=== PATIENT | female | born 1935 | race Caucasian/White ===

== ENCOUNTER 2016-10-16 07:46 | Emergency (ER) | payer OTHER, BC ==
[~2016-10-16] VITALS: Ht 157.5 cm; Wt 38.6 kg
[2016-10-16 08:15] LABS: ABSOLUTE NEUTROPHILS 4.6 thou/uL (1.4-8.2); BASOPHILS 0.5 % (0.0-2.0); EOSINOPHILS 2.9 % (0.0-3.0); HEMATOCRIT 37.5 % (37.0-47.0); HEMOGLOBIN 12.6 gm/dL (12.0-15.0); LYMPHOCYTES 22.3 % (24.0-44.0); MCH 28.6 pg (26.0-34.0); MCHC 33.6 g/dL (28.0-37.0); MCV 85.3 fL (80.0-100.0); MONOCYTES 8.4 % (1.0-8.0); PLATELET COUNT 239 thou/uL (150-400); POLYS 65.9 % (36.0-66.0); RDW 14.9 % (10.5-14.5); WBC 6.9 thou/uL (4.0-11.0)
[2016-10-16 08:16] LABS: MANUAL DIFF NO
[2016-10-16 08:26] LABS: CALCIUM 9.4 mg/dL (8.5-10.1); POTASSIUM 3.9 mmol/L (3.5-5.1)
[2016-10-16 08:30] LABS: ALBUMIN 4.2 g/dL (3.4-5.0); DIRECT BILIRUBIN 0.2 mg/dL (<0.1-0.3); TOTAL PROTEIN 7.7 g/dL (6.4-8.2)
[2016-10-16] MEDS ORDERED: ATORVASTATIN CA80 MG PO (09:04)
[2016-10-16] MEDS ORDERED: NORVASC5 MG PO (09:04)
[2016-10-16] MEDS ORDERED: HYDROCHLOROTHIA25 M2 PO (09:04)
[2016-10-16] MEDS ORDERED: LISINOPRIL20 MG PO (09:04)
[2016-10-16] MEDS ORDERED: QVAR8.7 G1 IH (09:05)
[2016-10-16] MEDS ORDERED: VENTOLIN HFA 1818 GM INH (09:05)
[2016-10-16] MEDS ORDERED: XALATAN2.5 ML OPHTHALMIC (09:06)
[2016-10-16] MEDS ORDERED: MOBIC7.5 MG PO (11:08)
[2016-10-16] MEDS ORDERED: VALIUM2 MG PO (11:08)
[2016-10-16 11:33] VITALS: BP 142/59
== END 2016-10-16 11:42 | disposition home or self-care (01) ==
LOC: ER 07:46
PROVIDERS: Emergency Medicine
DX: M62.830 Muscle spasm of back (principal); Z90.89 Acquired absence of other organs; Z90.710 Acquired absence of both cervix and uterus

== ENCOUNTER 2017-08-10 18:19 | Emergency (ER) | payer OTHER, BC ==
[~2017-08-10] VITALS: Ht 157.5 cm; Wt 36.7 kg
[~2017-08-10 18:19] MED LIST: ATORVASTATIN CA80 MG PO; HYDROCHLOROTHIA25 M2 PO; LISINOPRIL20 MG PO; MOBIC7.5 MG PO; NORVASC5 MG PO; QVAR8.7 G1 IH; VALIUM2 MG PO; VENTOLIN HFA 1818 GM INH; XALATAN2.5 ML OPHTHALMIC
[2017-08-10] MEDS ORDERED: COLACE100 MG PO (19:02)
[2017-08-10] MEDS ORDERED: NORCO 5-325 TA1 EACH PO (19:02)
[2017-08-10 19:48] VITALS: BP 109/76
== END 2017-08-10 19:33 | disposition home or self-care (01) ==
LOC: ER 18:19
DX: S39.012A Strain of muscle, fascia and tendon of lower back, initial encounter (principal); S22.41XA Multiple fractures of ribs, right side, initial encounter for closed fracture; J45.909 Unspecified asthma, uncomplicated; Z90.89 Acquired absence of other organs; X50.1XXA Overexertion from prolonged static or awkward postures, initial encounter; Y93.89 Activity, other specified; Y92.89 Other specified places as the place of occurrence of the external cause; Y99.8 Other external cause status

== ENCOUNTER 2019-03-03 16:35 | Emergency (ER) | payer OTHER, BC ==
[~2019-03-03] VITALS: Ht 157.5 cm; Wt 39.0 kg
[~2019-03-03 16:35] MED LIST changes: +COLACE100 MG PO; +NORCO 5-325 TA1 EACH PO
[2019-03-03 17:11] LABS: URINE BILIRUBIN NEGATIVE (Negative); URINE BLOOD NEGATIVE (Negative); URINE CLARITY CLEAR; URINE COLOR YELLOW; URINE GLUCOSE-RANDOM* NEGATIVE (Negative); URINE KETONES NEGATIVE (Negative); URINE LEUKOCYTES-REFLEX NEGATIVE (Negative); URINE NITRITE-REFLEX NEGATIVE (Negative); URINE PROTEIN (DIPSTICK) 1+ (Negative); URINE SPECIFIC GRAVITY 1.015 (1.005-1.035); URINE UROBILINOGEN 0.2 E.U./dl (0.2-1.0)
[2019-03-03] MEDS ORDERED: TRAMADOL 50 MG50 MG PO (17:11)
[2019-03-03 17:31] LABS: BACTERIA-REFLEX 1-9 Few /HPF (None Seen); CASTS None Seen /LPF (None Seen); CRYSTALS None Seen /LPF (None Seen); SQUAMOUS 0-3 Few /LPF (0-3); URINE RBC None Seen /HPF (0-2); URINE WBC-REFLEX None Seen /HPF (0-5)
[2019-03-03] MEDS ORDERED: LIDOCAINE PAIN1 EACH TOP (18:06)
[2019-03-03 18:14] VITALS: BP 146/67
== END 2019-03-03 18:18 | disposition home or self-care (01) ==
LOC: ER 16:35
PROVIDERS: Physician Assistant
DX: S22.32XA Fracture of one rib, left side, initial encounter for closed fracture (principal); J45.909 Unspecified asthma, uncomplicated; Z90.49 Acquired absence of other specified parts of digestive tract; X58.XXXA Exposure to other specified factors, initial encounter; Y93.89 Activity, other specified; Y92.89 Other specified places as the place of occurrence of the external cause; Y99.8 Other external cause status

== ENCOUNTER 2020-02-01 11:40 | Emergency (ER) | payer OTHER, BC ==
[~2020-02-01] VITALS: Ht 157.5 cm; Wt 39.9 kg
[~2020-02-01 11:40] MED LIST changes: +LIDOCAINE PAIN1 EACH TOP; +TRAMADOL 50 MG50 MG PO
[2020-02-01] MEDS ORDERED: ASPIR 8181 MG PO (11:58)
[2020-02-01 13:13] LABS: URINE BILIRUBIN NEGATIVE (Negative); URINE BLOOD NEGATIVE (Negative); URINE CLARITY CLEAR; URINE COLOR YELLOW; URINE GLUCOSE-RANDOM* NEGATIVE (Negative); URINE KETONES NEGATIVE (Negative); URINE LEUKOCYTES-REFLEX 2+ (Negative); URINE NITRITE-REFLEX NEGATIVE (Negative); URINE PROTEIN (DIPSTICK) NEGATIVE (Negative); URINE UROBILINOGEN 0.2 E.U./dl (0.2-1.0)
[2020-02-01 13:24] LABS: CRYSTALS None Seen /LPF (None Seen); HYALINE CASTS 0-3 Few /LPF (None Seen); SQUAMOUS 4-10 Moderate /LPF (0-3); URINE RBC None Seen /HPF (0-2); URINE WBC-REFLEX 6-15 Few /HPF (0-5)
[2020-02-01] MEDS ORDERED: KEFLEX500 M1 PO (13:43)
[2020-02-01 13:53] VITALS: BP 134/54
== END 2020-02-01 13:54 | disposition home or self-care (01) ==
LOC: ER 11:40
PROVIDERS: Emergency Medicine
DX: M54.5 Low back pain (principal); N39.0 Urinary tract infection, site not specified; J45.909 Unspecified asthma, uncomplicated; Z90.89 Acquired absence of other organs; Z79.82 Long term (current) use of aspirin; Z79.899 Other long term (current) drug therapy; Z90.710 Acquired absence of both cervix and uterus

== ENCOUNTER 2020-02-14 14:10 | Emergency (ER) | payer OTHER, BC ==
[~2020-02-14] VITALS: Ht 157.5 cm; Wt 39.9 kg
[~2020-02-14 14:10] MED LIST changes: +ASPIR 8181 MG PO; +KEFLEX500 M1 PO
[2020-02-14 14:39] LABS: URINE BILIRUBIN NEGATIVE (Negative); URINE BLOOD NEGATIVE (Negative); URINE CLARITY CLEAR; URINE COLOR YELLOW; URINE GLUCOSE-RANDOM* NEGATIVE (Negative); URINE KETONES NEGATIVE (Negative); URINE LEUKOCYTES-REFLEX NEGATIVE (Negative); URINE NITRITE-REFLEX NEGATIVE (Negative); URINE PROTEIN (DIPSTICK) TRACE (Negative); URINE SPECIFIC GRAVITY 1.015 (1.005-1.035); URINE UROBILINOGEN 0.2 E.U./dl (0.2-1.0)
[2020-02-14] MEDS ORDERED: FLEXERIL PO (19:12)
[2020-02-14] MEDS ORDERED: LIDODERM1 EACH TOP (19:12)
[2020-02-14 19:30] VITALS: BP 158/69
== END 2020-02-14 19:40 | disposition home or self-care (01) ==
LOC: ER 14:10
PROVIDERS: Physician Assistant
DX: M54.5 Low back pain (principal); J45.909 Unspecified asthma, uncomplicated; Z90.89 Acquired absence of other organs; Z98.890 Other specified postprocedural states; Z79.899 Other long term (current) drug therapy; Z79.82 Long term (current) use of aspirin

== ENCOUNTER 2020-02-17 12:00 | Inpatient (IN) | payer OTHER, BC ==
[~2020-02-17] VITALS: Ht 157.5 cm; Wt 39.9 kg
[~2020-02-17 12:00] MED LIST changes: +FLEXERIL PO; +LIDODERM1 EACH TOP
[2020-02-17 12:01] VITALS: BP 112/57; BP 86/57
[2020-02-17 12:30] LABS: ABSOLUTE NEUTROPHILS 7.7 thou/uL (1.4-8.2); BASOPHILS 0.2 % (0.0-2.0); EOSINOPHILS 0.1 % (0.0-3.0); HEMATOCRIT 25.8 % (37.0-47.0); HEMOGLOBIN 8.5 gm/dL (12.0-15.0); LYMPHOCYTES 9.4 % (24.0-44.0); MCH 26.2 pg (26.0-34.0); MCHC 32.8 g/dL (28.0-37.0); MCV 79.8 fL (80.0-100.0); MONOCYTES 8.9 % (1.0-8.0); PLATELET COUNT 386 thou/uL (150-400); POLYS 81.4 % (36.0-66.0); RBC 3.24 mil/uL (4.20-5.00); RDW 14.5 % (10.5-14.5); WBC 9.5 thou/uL (4.0-11.0)
[2020-02-17] MEDS ORDERED: HYDROCHLOROTHIA25 M2 PO ×2 (12:30)
[2020-02-17 12:40] LABS: ANION GAP 12 mmol/L (7-16); BUN 23 mg/dL (7-18); CALCIUM 9.3 mg/dL (8.5-10.1); CHLORIDE 87 mmol/L (98-107); CO2 25 mmol/L (21-32); CREATININE 1.3 mg/dL (0.6-1.0); GLUCOSE 135 mg/dL (74-106); POTASSIUM 3.6 mmol/L (3.5-5.1); SODIUM 124 mmol/L (136-145)
--- NOTE | 2020-02-17 12:49 | NUR ---
PT'S SON-LUCY LASSITER-LEAVES PHONE #[phone]
[2020-02-17 12:50] LABS: ALBUMIN 3.5 g/dL (3.4-5.0); SGOT 33 U/L (15-37); SGPT 26 U/L (30-65); TOTAL BILIRUBIN 0.6 mg/dL (0.2-1.0); TOTAL PROTEIN 6.8 g/dL (6.4-8.2); TROPONIN-I <0.06 ng/mL (<0.06)
--- NOTE | 2020-02-17 14:31 | EKG ---
[facility] [place] [address] ELECTROCARDIOGRAM REPORT Name: HÉCTOR LASSITER Room #: 170-12 ADM IN M.R.#: [id number] Admission: 02/17/20 Attend Phys: Vikci Henley MD Discharge: Date of : 31 Report #: [id number] THIS REPORT FOR: cc: Dick Tello MD, Thomas P. MD Santiago, Patrick MD [facility] ~ THIS REPORT FOR: //name// [facility] ED Test Date: 2020-02-17 Test Time: 12:23:08 Pat Name: HÉCTOR LASSITER Department: Room: [facility] Gender: F Rn Utilization Management Um: no : 1935 Requested By: Juan Carlos Smith Order Number: [id number] MD: Antwon Teixeira Measurements Intervals [place] Rate: 85 P: 76 ID: 139 QRS: 73 QRSD: 103 T: 168 QT: 385 QTc: 458 Interpretive Statements Sinus rhythm Atrial premature complex Probable left atrial enlargement Repol abnrm suggests ischemia, diffuse leads No previous ECG available for comparison Electronically Signed On 02-17-2020 14:30:57 CDT by Antwon Teixeira [email or web address] <ELECTRONICALLY SIGNED> By: Antwon Teixeira MD, FACC 02/17/20 1430 1223 1223 Antwon Teixeira MD, FACC /EPI
[2020-02-17 15:38] LABS: % SATURATION 3 % (20-39); IRON 8 ug/dL (50-170); TIBC 295 ug/dL (250-450)
[2020-02-17 16:43] LABS: TSH 2.161 uIU/mL (0.358-3.740)
[2020-02-17 18:03] LABS: URINE BILIRUBIN NEGATIVE (Negative); URINE BLOOD TRACE (Negative); URINE CLARITY CLEAR; URINE COLOR YELLOW; URINE GLUCOSE-RANDOM* NEGATIVE (Negative); URINE KETONES NEGATIVE (Negative); URINE LEUKOCYTES-REFLEX NEGATIVE (Negative); URINE NITRITE-REFLEX NEGATIVE (Negative); URINE PROTEIN (DIPSTICK) NEGATIVE (Negative); URINE SPECIFIC GRAVITY <= 1.005 (1.005-1.035); URINE UROBILINOGEN 0.2 E.U./dl (0.2-1.0)
[2020-02-17 20:23] VITALS: BP 119/59
[2020-02-17 20:25] VITALS: BP 131/61
--- NOTE | 2020-02-17 20:28 | NUR ---
Called to give report but was told RN will call back
[2020-02-17 21:22] VITALS: BP 135/59
--- NOTE | 2020-02-17 23:27 | NUR ---
PT ARRIVED VIA CART FROM ER. ADMISSION COMPLETED, INTERVENTIONS INITIATED, CAREPLAN UPDATED. PT WILL BE NPO AT 2400 FOR EGD IN THE AM. COVID PCR CAME BACK NEGATIVE. ALL PARTIES NOTIFIED.
[2020-02-18] VITALS (8 sets, daily range): BP systolic 109–151; BP diastolic 49–67
[2020-02-18 02:56] LABS: BASOPHILS 0.2 % (0.0-2.0); EOSINOPHILS 0.3 % (0.0-3.0)
[2020-02-18 02:58] LABS: ABSOLUTE NEUTROPHILS 4.1 thou/uL (1.4-8.2); MCH 26.6 pg (26.0-34.0); MCHC 33.5 g/dL (28.0-37.0); MCV 79.5 fL (80.0-100.0); MONOCYTES 8.7 % (1.0-8.0); POLYS 76.8 % (36.0-66.0); RBC 2.34 mil/uL (4.20-5.00); RDW 14.4 % (10.5-14.5); WBC 5.3 thou/uL (4.0-11.0)
[2020-02-18 03:06] LABS: CALCIUM 7.9 mg/dL (8.5-10.1); CREATININE 0.9 mg/dL (0.6-1.0); MAGNESIUM 1.5 mg/dL (1.8-2.4); POTASSIUM 3.8 mmol/L (3.5-5.1)
[2020-02-18 03:08] LABS: PLATELET COUNT 272 thou/uL (150-400)
[2020-02-18 03:09] LABS: HEMATOCRIT 18.6 % (37.0-47.0); HEMOGLOBIN 6.2 gm/dL (12.0-15.0)
--- NOTE | 2020-02-18 03:24 | NUR ---
KIRSTIN FROM LAB CALLED CL OF HgB OF 6.2. CALLED SYSTEMS SOFTWARE SPECIALIST AND RECEIVED ORDERS TO TRANSFUSE 2 UNITS AND OBTAIN H/H AFTER THAT.
--- NOTE | 2020-02-18 11:42 | NUR ---
ASSUMED PATIENT CARE THIS AM AT APPROXIMATELY 0700. PATIENT IS AWAKE ALERT ORIENTED. MEDS AND ASSESSMENTS CHARTED. 1ST UNIT OF PRBC ARE INFUSING THIS AM STARTED BY NIGHT RN. PATIENT TOLERATING WELL. VSS. NO S/S OF TRANSFUSION REACTION NOTED AT THIS TIME. PATIENT CONSENTS SIGNED FOR EGD AND COLONOSCPY SCHEDULED FOR TODAY. STATES UNDERSTANDING OF PROCEDURE. BOWEL PREP COMPLETED LAST NIGHT AND HAS BEEN NPO SICE MN. PATIENT ISOLATION DISCONTINUED BY LAVELLE JAIME/ DR. MÉNDEZ AFTER COVID NEG X2, THIS AM AT APPROXIMATELY 1100. SECOND UNIT OF BLOOD INFUSING NOW. H/H TO BE DRAW AFTER COMPLETED
--- NOTE | 2020-02-18 13:13 | NUR ---
INITIAL ASSESSMENT: Consult received. SW reviewed chart and spoke with nursing and attending physician. Pt was admitted from home due to upper GI bleed/anemia. Pt has had 2 units of PRBC and will have EGD/colonoscopy later today. Pt placed in Enhanced Isolation due to COVID-19. Pt's test was negative. Enhanced Isolation precautions have been discontinued. SW spoke with pt via phone. Introduced role of SW. Pt appears to be alert/orientated x 4. Pt states she lives at home with her son, Fernando. Prior to admission, pt was independent with ADLs. No use of DME. No hx of HH services or post-acute placement. Pt's PCP is Dr. Dick Tello. Pt is agreeable with HH services if recommended at time of discharge. Therapy ordered to evaluate pt. SW is following to assist as needed with discharge planning.
[2020-02-18 13:15] LABS: HEMATOCRIT 31.9 % (37.0-47.0)
[2020-02-18 13:18] LABS: HEMOGLOBIN 10.8 gm/dL (12.0-15.0)
--- NOTE | 2020-02-18 19:03 | NUR ---
Received pt from [facility], very confused would not know what she wants in first its was too how when temp was turned to 70 it was too low. IV fluids infusing, POC followed with no signs or verbalizations of distress noted. Daughter called Liudmila [phone], stated she wants to be on the list to receive infformation, advised that all that was needed was the code. Endorsed to the night nurse.
--- NOTE | 2020-02-19 04:32 | NUR ---
PATIENT HAS BEEN IN BED ALL NIGHT. SHE IS UP WITH ASSIST X 1 TO THE BATHROOM. SHE IS WEAK AND NEEDS STAND BY ASSIST. PATIENT HAS CONTINOUS IV'S OF NORMAL SALINE AND PANTROPAZOLE. IV ACCESS IS IN RIGHT FOREARM. NO REDNESS, SWELLING OR PAIN. LINE IS PATENT. PATIENT WITH INCREASED ANXIETY THRU THE NIGHT. SHE WAS YELLING OUT AND RESTLESS AND NOTHING WAS RIGHT TO HER. SHE COMPLAINED THAT THE PAD UNDER HER WAS NOT STRAIGHT, THE PHONE SHE DROPPED ON THE FLOOR. PT ENCOURAGED TO TAKE SLOW DEEP BREATHS D/T HYPERVENTILATING. THE IV ALARM DROVE HER CRAZY AND WE GOT TO IT RIGHT AWAY. THE TELEMONITOR WAS BOTHERING HER. CALLED AND RECEIVED ORDER FOR HALDOL 1MG IVPUSH. THIS GIVEN AT 0410. STAYED WITH PATIENT TO HELP CALM HER WHILE WAITING ON RESPIRATORY ORDER FOR BREATHING TREATMENT. PATIENT'S 02 % ON RA IS 98. HER PULSE WAS 90 AND HER TEMP WAS 99.0. PATIENT'S ROOM IS WARM AND HEAT ADJUSTED. CALLED AND RECEIVED ORDER TO ALLOW PATIENT TO HAVE SIPS OF WATER UNTIL NEW DIET ORDER DECIDED. PT CURRENTLY ON NPO. PATIENT HAD COLONOSCOPY 02/17 AND WAS NPO FOR THIS. PATIENT IS IN BED IN LOW POSITION AND BED ALARM IS ON. PATIENT DENIES PAIN. SHE IS A/0X3 AND FORGETFUL AT TIMES. HER DAUGHTER MILAGRO CALLED FROM [place] TO CHECK ON HER TONIGHT AND WISHES TO SPEAK WITH IN AM ABOUT PATIENT CONDITION. CONTINUING TO MONITOR.
--- NOTE | 2020-02-19 05:03 | NUR ---
RESPIRATORY THERAPIST, YOHAN CAME TO GIVE RT AND PATIENT REFUSED STATING SHE FELT BETTER AND DID NOT WANT IT. SHE WAS TOLD TO LET US KNOW IF SHE DECIDES SHE NEEDS ONE AND RT WILL COME BACK TO GIVE. PATIENT SLEEPING NOW.
[2020-02-19 07:59] VITALS: BP 101/39
[2020-02-19 09:43] LABS: HEMATOCRIT 31.9 % (37.0-47.0); HEMOGLOBIN 10.7 gm/dL (12.0-15.0)
--- NOTE | 2020-02-19 13:40 | NUR ---
ASSUMED PT CARE THIS AM. PT A&OX4 WITH CONFUSION. PT APPEARS ANXIOUS, REPORTS THAT SHE IS JUST UNCOMFORTABLE IN BED. PT REPOSITIONED MULTIPLE TIMES, REPORTS BEING UNCOMFORTABLE DESPITE REPOSITIONING. DAUGHTER CALLED MULTIPLE TIMES INSISTING ON TALKING TO THE DR ABOUT POC AND WHAT RESULTS WERE. DR MADE AWARE. PT REPORTS NO PAIN. FALL PRECAUTIONS IN PLACE. IV PATENT, FLUIDS RUNNING. DR PUT IN ORDER FOR LORAZEPAM DUE TO PT ANXIETY, BUT PT REFUSED THE LORAZEPAM. PT PLACED ON DIET, EATING AND DRINKING WELL. WILL CONTINUE TO MONITOR.
[2020-02-19 13:43] VITALS: BP 129/58
[2020-02-19 15:00] VITALS: BP 129/58
--- NOTE | 2020-02-19 15:15 | NUR ---
CARE TEAM INDICATED THAT PT IS MEDICALLY STABLE TO DISCHARGE HOME THIS DAY. PT IS TO DC HOME AND RECIEVE CALL RELATED TO HER BIOPSY RESULTS AND FOLLOW UP WITH CARES AN OUTPATIENT. PT, SON, AND DTR ARE ALL AWARE AND AGREEABLE WITH THIS PLAN. CM SPOKE WITH THEM ALL THIS AFTERNOON. PT'S SON LUCY TO PROVIDE TRANSPORT HOME VIA PERSONAL VEHICLE AROUND 1530. PT TO DC HOME TO SELF CARE. NO OTHER CM INTERENTION INDICATED CASE CLOSED.
--- NOTE | 2020-02-23 17:06 | PATH ---
[facility] [place] [place] [address] PATHOLOGY RPT PROCEDURE Name: NINI LASSITER Carlito Room #: 449-I DIS IN M.R.#: [id number] Admission: 02/17/20 Date of : 31 Discharge: 02/19/20 Report #: [id number] Path Case #: [id number] [facility] Accession Number: [id number] . 01 Material submitted: . PART A: stomach - BIOPSY OF GASTRITIS R/O H. PYLORI PART B: duodenum - BIOPSY OF DUODENAL ULCER PART C: cecum - BIOPSY OF CECUM MASS . 01 Clinical history: . UPPER GI BLEED, ANEMIA . 02 Diagnosis: A. Gastric mucosa, gastritis, endoscopic biopsy: - Mild reactive gastropathy. - Negative for intestinal metaplasia or atrophy. - Negative for Helicobacter pylori (properly controlled immunohistochemical stain performed). . B. Small bowel mucosa, duodenal ulcer, endoscopic biopsy: - Moderate active peptic duodenitis associated with ulceration. - Negative for dysplasia or malignancy. . C. Cecum mass, endoscopic biopsy: - INVASIVE MODERATELY DIFFERENTIATED COLONIC ADENOCARCINOMA. LBQ 02/20/2020 1505 Local . 02 Comment: Part C was co-reviewed by Dr. Feroz Dial. Findings of this case are telephoned to our GI nurse practitioner, Ms. Bebe Galdamez, at approximately 2:36 p.m. on 02/20/2020. (IUV/db; 02/20/2020) . 02 Addendum: . MICROSATELLITE INSTABILITY REPORT (MSI): . Per [facility] Cancer Committee protocol and NCCN guidelines, mismatch repair (MMR) protein immunohistochemical staining was performed. . Reason for testing: To evaluate for evidence of defective mismatch repair proteins. Method: Immunohistochemical staining for the presence or absence of protein expression of one or more of the following MMR protein markers: MLH1, MSH2, MSH6 and PMS2. Tumor type: Invasive adenocarcinoma . Results: [address] [address] PATHOLOGY RPT PROCEDURE Name: NINI LASSITER Room #: 449-I [facility].#: [id number] Admission: 02/17/20 Date of : 31 Discharge: 02/19/20 Report #: [id number] Path Case #: [id number] MLH1 - Preserved MSH2 - Preserved MSH6 - Preserved PMS2 - Preserved . Mismatch Repair Status:MMR Proficient (MMR-P) . Interpretation: . (MMR-P) All four MMR proteins are preserved within tumor cells. This suggests the presence of normal DNA mismatch repair function within the tumor and an observable defect in mismatch repair is not identified. The likelihood that this patient has an inherited germline mutation syndrome due to defective mismatch repair is reduced but not totally eliminated. If the patient has a strong personal or family history of HPNCC/Jason syndrome related cancers (colorectal, endometrial, gastric, ovarian, pancreatic, ureter/renal pelvis, biliary tract, brain, small bowel and Emerita-Williams syndrome), consider MSI testing by PCR methodology. Suggest clinical correlation and follow up. . These test results are designed for screening purposes only and are useful tools in identifying cancer patients that are more likely to have Jason Syndrome related diagnoses. Tests should be interpreted in the context of clinical findings, family history and laboratory data. Abnormal IHC results for MMR protein expression are not considered diagnostic for Jason Syndrome. . (IUV:budget assistant; 02/23/2020) . Professional services performed by [facility] at [facility], [address] [place] [address] , [place] [address]. Technical services performed by [facility] at [address] [place] [address], [address], [place] [address]. MBR/02/23/2020 Addendum Electronically Signed by Olga Jacinto MD, Pathologist . 02 Electronically signed: . Olga Jacinto MD, Pathologist NPI- [id number] . 01 Gross description: . A. Received in formalin labeled "Nini Lassiter, BX of gastritis rule out H. pylori" are multiple miller-brown soft tissue fragments measuring in aggregate 1.0 x 0.6 x 0.1 cm. The specimen is submitted entirely in A1. . B. Received in formalin labeled "Nini Lassiter, BX of duodenal ulcer" are multiple miller-brown soft tissue fragments measuring in aggregate 0.5 x 0.5 x 0.1 cm. The specimen is submitted entirely in B1. . [facility] [address] [place] [address] PATHOLOGY RPT PROCEDURE Name: NINI LASSITER Room #: 449-I DIS IN M.R.#: [id number] Admission: 02/17/20 Date of : 31 Discharge: 02/19/20 Report #: [id number] Path Case #: [id number] C. Received in formalin labeled "Nini Lassiter, BX of cecum mass" are multiple miller-brown soft tissue fragments measuring in aggregate 1.2 x 0.5 x 0.1 cm. The specimen is submitted entirely in C1. [place]19/2020[place] [facility] 02/19/2020 1300 Local . 02 Pathologist provided ICD-10: K31.9, K29.80, K26.9, C18.0 . 02 CPT . 081623, 476873, 907493, B02750 Specimen Comment: A courtesy copy of this report has been sent to [phone] Specimen Comment: [phone], Specimen Comment: Report sent to ,DR ISRAEL / DR PARIKH Performed at: [address] [facility] [address], [place], [place] [id number] MD Romulo Mena MD Phone: [phone] Performed at: [address] [facility] [address] [id number] MD Olga Jacinto MD Phone: [phone]
== END 2020-02-19 16:45 | disposition home or self-care (01) | DRG 374 ==
LOC: ER 12:00 → EROBS 14:16 → 4W 14:16 → 3W 14:16 → 4W 02-18 17:07
PROVIDERS: Nurse Practitioner; Physician Assistant; ADMIT Hospitalist; ATTEND Hospitalist
PROC: 0DB98ZX Excision of Duodenum, Via Natural or Artificial Opening Endoscopic, Diagnostic (ICD-10-PCS; principal; 2020-02-18)
PROC: 30233N1 Transfusion of Nonautologous Red Blood Cells into Peripheral Vein, Percutaneous Approach (ICD-10-PCS; principal; 2020-02-18)
PROC: 0DB68ZX Excision of Stomach, Via Natural or Artificial Opening Endoscopic, Diagnostic (ICD-10-PCS; principal; 2020-02-18)
PROC: 0DBH8ZX Excision of Cecum, Via Natural or Artificial Opening Endoscopic, Diagnostic (ICD-10-PCS; principal; 2020-02-18)
DX: C18.0 Malignant neoplasm of cecum (principal); K26.4 Chronic or unspecified duodenal ulcer with hemorrhage; E43 Unspecified severe protein-calorie malnutrition; E87.1 Hypo-osmolality and hyponatremia; N17.9 Acute kidney failure, unspecified; Z68.1 Body mass index [BMI] 19.9 or less, adult; D50.0 Iron deficiency anemia secondary to blood loss (chronic); R63.4 Abnormal weight loss; J45.909 Unspecified asthma, uncomplicated; E78.5 Hyperlipidemia, unspecified; I10 Essential (primary) hypertension; M19.90 Unspecified osteoarthritis, unspecified site; K44.9 Diaphragmatic hernia without obstruction or gangrene; K63.9 Disease of intestine, unspecified; H35.30 Unspecified macular degeneration; G47.00 Insomnia, unspecified; Z20.828 Contact with and (suspected) exposure to other viral communicable diseases; Z90.710 Acquired absence of both cervix and uterus; Z28.21 Immunization not carried out because of patient refusal; Z79.899 Other long term (current) drug therapy
CPT/HCPCS: 10045; 10879; 62110; 62900; 70005